=== PATIENT | female | born 1965 | race Caucasian/White ===

== ENCOUNTER 2022-01-21 14:06 | Emergency (ER) | payer MEDICAID, SELFPAY ==
[2022-01-21 14:08] VITALS: BP 125/114; PULSE 46; RESP 18; TEMP 36; O2SAT 100; BMI 32.5
[2022-01-21 14:23] VITALS: BP 170/70; PULSE 47; RESP 18; O2SAT 95
--- NOTE | 2022-01-21 14:23 | CT_ITS ---
STUDY: CT ABDOMEN AND PELVIS WITHOUT CONTRAST REASON FOR EXAM: Female, 56 years old. Nausea and vomiting. Stool incontinence. RADIATION DOSAGE (If Supplied By Facility): CTDIvol = ( 7.76 ) mGy, DLP = ( 358.50 ) mGycm TECHNIQUE: Transaxial images were obtained from the dome of the diaphragm to the symphysis pubis without oral contrast, and without intravenous contrast. Sagittal and coronal images were reconstructed. Individualized dose optimization techniques were used for this CT. COMPARISON: None. FINDINGS: The visualized lung bases are unremarkable. The visualized portions of the heart are within normal limits. Normal liver. Mildly distended gallbladder. Questionable sludge within the gallbladder lumen. Correlation with ultrasound is recommended. Normal spleen. Normal pancreas. Normal bilateral adrenal glands. Normal right kidney. Normal left kidney. There is a small hiatal hernia. Normal small intestine. Normal colon. The appendix is visualized and appears normal. Normal abdominal aorta. Normal inferior vena cava. Normal retroperitoneum. Normal urinary bladder. There is a small umbilical hernia containing fat. Small right inguinal hernia containing fat. Normal osseous structures. CT/Abdomen/Pelvis without Cont IMPRESSION: Mildly distended gallbladder. Correlation with ultrasound is recommended. Electronically Signed: Antonino Luz MD at 15:38 EDT ,
--- NOTE | 2022-01-21 14:24 | EDS_ITS ---
HPI History of Present Illness Chief Complaint: Nausea/Vomiting Detail of Chief Complaint: Nausea, and vomiting and abdominal pain that started around 1 PM Informant: patient Narrative Narrative: Patient presents to the emergency department complaint of of sudden onset of symptoms around 1 PM where she became very nauseated and sweaty with dry heaves. She complains of right lower quadrant abdominal discomfort. Patient was then incontinent of stool and still feels like she needs to have stool. Patient denies any fever or recent illness. She denies any sick contacts. She denies eating any suspicious foods. Prior similar symptoms: No PFSH PFSH Home Medications Suboxone 01/21/22 [History Last Taken Unknown] ondansetron 4 mg PO Q8H PRN PRN #10 tab 01/21/22 [Rx Last Taken Unknown] Allergy/AdvReac Type Severity Reaction Status Date / Time No Known Allergies Allergy Verified 01/21/22 14:15 Social History Smoking Status: Never smoker ROS ROS ED Constitutional Constitutional ED: Reports systems reviewed and no addt'l complaints, except as documented; Denies body ache(s), change in weight or chills Eyes Eyes: Denies acute decrease in peripheral vision, change in vision, double vision or loss of vision ENT ENT ED: Reports none; Denies ear pain, lip swelling, loss taste/smell, neck pain, otalgia or sore throat Cardiovascular Cardiovascular: Reports none; Denies abdominal pain, chest pain with activity, leg edema, lightheadedness, palpitations, rapid heart rate or syncope Respiratory/Chest Respiratory/Chest: Reports none; Denies change in mental status, dry cough, dyspnea, hemoptysis, shortness of breath at rest or shortness of breath with exertion Gastrointestinal Gastrointestinal: Reports none, abdominal pain, nausea, vomiting and other Details: Stool incontinence ; Denies change in stool character, diarrhea, hematemesis, hematochezia, melena or rectal bleeding Genitourinary Genitourinary ED: Reports none; Denies abdominal discomfort, anuria, dysuria, genital pain or polyuria Musculoskeletal Musculoskeletal: Reports none; Denies arthralgias, back pain, difficulty walking, extremity pain, muscle weakness or myalgias Integumentary Reports none; Denies abscess or rash Neurologic Neurologic: Reports none; Denies abnormal gait, confusion, focal weakness, frequent falls, headache(s), loss of vision, numbness, paresthesias, radicular pain, vertigo or weakness Psychiatric Psychiatric: Reports systems reviewed and no addt'l complaints, except as documented and none; Denies behavioral changes, confusion, difficulty concentrating, hallucinations, suicidal ideation, tactile hallucinations or visual hallucinations Endocrine Endocrinology: Denies none, cold intolerance, excessive sweating, fatigue or heat intolerance Hematologic/Lymphatic Hematologic/Lymphatic: Reports none; Denies anemia, easy bleeding or easy bruising Allergic/Immunologic Allergic/Immunologic ED: Denies as per HPI, none, lip swelling, mouth swelling, throat swelling, tongue swelling or hives EXAM Physical Exam Const Vital Signs: 01/21/22 14:08 01/21/22 14:23 01/21/22 15:13 Temperature 96.8 F L Temperature Source Temporal Pulse Rate 46 L 47 L 62 Respiratory Rate 18 18 15 Blood Pressure 125/114 H 170/70 H 149/67 H Blood Pressure Mean 117 103 94 Pulse Ox 100 95 93 Oxygen Delivery Method Room Air Room Air Room Air Positive well nourished and well developed General Appearance ED: well developed and NAD HEENT Reports TM's clear and moist mucous membranes normocephalic and atraumatic; Negative for trauma or tenderness Tympanic Membrane ED: Yes TM's clear Eyes PERRL and EOMs intact bilaterally General Eye ED: Negative for pale conjunctiva or scleral icterus Neck no lymphadenopathy, supple and no JVD General: Negative for tenderness Chest Wall inspection of chest normal and palpation of chest normal Chest: Negative for tenderness Resp normal respiratory effort and clear to auscultation bilaterally Effort and Inspection: Negative for respiratory distress or pain with movement Auscultation: Negative for rhonchi, wheezes or diminished lung sounds Cardio regular rate, regular rhythm, S1 normal heart sound, S2 normal heart sound and no murmurs Peripheral Pulses: pulses 2+ throughout GI normal to inspection, nondistended, normoactive bowel sounds, soft to palpation, non-distended and no masses GI Narrative: Tenderness palpation of right lower quadrant with guarding. Patient also has some mild tenderness of her left lower quadrant. No rebound, rigidity, or peritoneal signs. Back/Spine no CVA tenderness and no thoracic nor lumbar tenderness Extremity normal to inspection General Extremety ED: Negative for edema General Extremity: Negative for edema Neuro oriented x3, CN's II-XII intact bilaterally, no sensory deficits noted and gait normal Sensorium / Orientation: awake, alert, oriented to person, oriented to place and oriented to time Motor Exam: strength 5/5 throughout and strength abnormal Psych mental status grossly normal Skin no rashes or lesions noted and no wounds MDM MDM MDM Narrative Medical decision making narrative: IV line established on arrival. Patient was given Zofran and normal saline fluid bolus. Once she started feeling better I was able to get more history from the patient and it turns out that initially what triggered the event was that she felt like she needed to have a bowel movement and she sat on the toilet and then could not have a bowel movement so then she started feeling hot and sweaty and feeling like she was in a pass out. Patient started to dry heave. At this point I feel more likely she had a vasovagal type episode. Patient feels markedly improved at this time. She will be discharged to home. I will give her a prescription for Zofran should she need it. Patient advised to push fluids. Patient to return if worsening pain, persistent vomiting, dehydration, or condition should worsen anyway. Lab Data Attestation: I reviewed the patient's lab results. Labs: Laboratory Results - last 24 hr 01/21/22 01/21/22 01/21/22 14:50 14:50 16:03 WBC 12.2 H RBC 5.00 Hgb 14.3 Hct 43.8 MCV 87.6 MCH 28.6 MCHC 32.6 RDW Std Deviation 42.7 RDW Coeff of Isaiah 13.2 Plt Count 270 MPV 10.1 Immature Gran % (Auto) 0.400 Neut % (Auto) 80.2 H Lymph % (Auto) 12.7 L [place] % (Auto) 5.1 Eos % (Auto) 1.1 Baso % (Auto) 0.5 Absolute Neuts (auto) 9.8 H Absolute Lymphs (auto) 1.54 Nucleated RBC % 0 Sodium 137 Potassium 3.3 L Chloride 104 Carbon Dioxide 27.0 Anion Gap 6 BUN 21 H Creatinine 1.09 H Estim Creat Clear Calc 46.67 Est GFR (MDRD) Af Amer 67 Est GFR (MDRD) Non-Af 55 L BUN/Creatinine Ratio 19.3 Glucose 123 H Calcium 9.5 Total Bilirubin 0.30 AST 32 ALT 29 Alkaline Phosphatase 82 Total Protein 7.9 Albumin 3.9 Globulin 4.0 Albumin/Globulin Ratio 1.0 Urine Color Yellow Urine Clarity Clear Urine pH 6.0 Ur Specific [place] 1.025 Urine Protein 15 H Urine Glucose (UA) Normal Urine Ketones 50 H Urine Occult Blood 25 H Urine Nitrite Negative Urine Bilirubin Negative Urine Urobilinogen Normal Ur Leukocyte Esterase 100 H Urine RBC 0-5 SEEN Urine WBC 5-10 SEEN Ur Squamous Epith Cells 0-5 SEEN Urine Bacteria 1+ Urine Mucus 0 SEEN Radiography Diagnostic Testing: Clinical Impression(s) from Imaging Studies Abdomen/Pelvis CT 01/21/22 14:23 IMPRESSION: Mildly distended gallbladder. Correlation with ultrasound is recommended. Electronically Signed: Antonino Luz MD at 15:38 EDT , Discharge Plan Triage Chief Complaint: Nausea/Vomiting ED Provider: Isadora Wood Dx/Rx/DC Orders Clinical Impression: Vasovagal episode, Vomiting Instructions: ED Fainting, Vagal Reaction, ED Vomiting (Adult) Prescriptions: New ondansetron [ondansetron] 4 MG tablet 4 mg PO Q8H PRN PRN (Reason: Nausea) Qty: 10 RF: 0 No Action Suboxone RF: 0 Primary Care Provider: Care Physician,No Primary Referrals: Zandra Navarrete MD [STAFF PHYSICIAN] - 3-5 Days Care Physician,No Primary [Primary Care Provider] - Disposition Disposition: Home, Self Care
[2022-01-21] MEDS: Ketorolac 15 MG/ML Vial IV (14:53)
[2022-01-21] MEDS: Ondansetron 4 MG/2 ML Vial IV (14:53)
[2022-01-21] MEDS: 0.9% Normal Saline 1,000 ML 125 ML IV (14:53)
[2022-01-21 15:00] LABS: Absolute Lymphocyte Count 1.54 X10^3/uL (0.83-4.51); Absolute Neutrophil Count 9.8 X10^3/uL (2.0-7.7); Basophil# 0.06 X10^3/uL; Basophil% 0.5 % (0-1); Eosinophil# 0.13 X10^3/uL; Eosinophils% 1.1 % (0-5); Hematocrit 43.8 % (37-47); Hemoglobin 14.3 g/dL (12.0-15.0); Lymphocyte # 1.54 X10^3/ul (0.83-4.51); Lymphocyte % 12.7 % (19-41); Mean Corp Hgb Conc 32.6 g/dL (32-36); Mean Corpuscular Hgb 28.6 pg (27.0-32.0); Mean Corpuscular Volume 87.6 fL (81-99); Mean Platelet Vol. 10.1 fl (6.2-12.0); Monocyte# 0.62 X10^3/uL; Monocyte% 5.1 % (0-10); NRBC Flagged by Analyzer 0 % (0-5); Neutrophil # 9.76 X10^3/uL (2.7-7.7); Neutrophil % 80.2 % (47-70); Platelet Count 270 K/mm3 (150-450); RBC Distribution Width CV 13.2 % (11.6-14.6); RBC Distribution Width SD 42.7 fl (35.1-43.9); White Blood Count 12.2 K/mm3 (4.4-11.0)
[2022-01-21 15:13] VITALS: BP 149/67; PULSE 62; RESP 15; O2SAT 93
[2022-01-21 15:15] LABS: AST(SGOT) 32 U/L (15-37); Alanine Aminotransfer ALT/SGPT 29 U/L (13-56); Albumin, Serum 3.9 g/dL (3.2-5.0); Alkaline Phosphatase 82 U/L (45-117); Anion Gap 6 (5-15); BUN 21 mg/dL (7-18); BUN/Creat Ratio 19.3 RATIO (10-20); Calcium,Total 9.5 mg/dL (8.5-10.1); Chloride 104 mmol/L (98-107); Creatinine, Serum 1.09 mg/dL (0.55-1.02); EST Glomerular Filtration Rate 55 mL/min (>60); Est Glom Filt Rate - Afr Amer 67 mL/min (>60); Estimated Creatinine Clearance 46.67 ml/min; Glucose 123 mg/dL (74-106); Potassium 3.3 mmol/L (3.5-5.1); Protein, Total 7.9 g/dL (6.4-8.2); Sodium Level 137 mmol/L (136-145)
[2022-01-21 16:10] LABS: Mucous, Urine 0 SEEN /hpf (<or=2+)
[2022-01-21 16:18] LABS: Color, Urine Yellow (Yellow); Glucose, Dipstick Normal (Normal); Ketone-Dipstick 50 mg/dl (Negative); Leukocyte Esterase-Dipstick 100 /ul (Negative); Nitrite-Dipstick Negative (Negative); Occult Blood-Urine 25 /ul (Negative); Protein-Dipstick 15 mg/dl (Negative); Specific Gravity, Urine 1.025 (1.002-1.030); Urine Bilirubin Dipstick Negative (Negative); Urine Clarity Clear (Clear); Urine Urobilinogen Normal (Normal)
[2022-01-21 16:28] LABS: Squamous Epithelial Cells - UA 0-5 SEEN /hpf (5-10); White Blood Cells 5-10 SEEN /hpf (0-5)
[2022-01-21 16:29] LABS: Red Blood Cells-Urine 0-5 SEEN /hpf (0-5)
[2022-01-21 16:30] LABS: Bacteria 1+ /hpf (None Seen)
[2022-01-21 17:22] VITALS: BP 148/72; PULSE 71; RESP 16; O2SAT 98
== END 2022-01-21 17:23 | disposition home or self-care (01) ==
PROVIDERS: Emergency Provider Emergency Medicine; Visit Provider Emergency Medicine
DX: R55 Syncope and collapse (principal); R11.2 Nausea with vomiting, unspecified; R10.9 Unspecified abdominal pain; R15.9 Full incontinence of feces
CPT/HCPCS: 74176; 80053; 81001; 85025; 96361; 96374; 96375; 99285; J7030; A4216; J2405